=== PATIENT | female | born 1990 | race American Indian/Alaskan Native ===

== ENCOUNTER 2020-02-29 16:57 | Emergency (ER) | payer MEDICAID ==
--- NOTE | 2020-02-29 17:46 | Event Note ---
ED Screening Note ED Screening Note: lmp 9 weeks preg [place] [facility] scoliosis vomiting fever/chills cough ob seen last week rx folic acid G1 This initial assessment/diagnostic orders/clinical plan/treatment(s) is/are subject to change based on patients health status, clinical progression and re- assessment by fellow clinical providers in the ED. Further treatment and workup at subsequent clinical providers discretion. Patient/guardian urged not to elope from the ED as their condition may be serious if not clinically assessed and managed. Initial orders include: labs urine
[2020-02-29] MEDS ORDERED: ONDANSETRON 4 MG/2 ML INJ IV ONE (18:34)
[2020-02-29 18:53] LABS: Bacteria,Urine 2+ /HPF (Negative); Bilirubin,Urine NEG (Negative); Blood,Urine NEG (Negative); Color,Urine Yellow (Yellow); Mucus,Urine 2+ /HPF; Protein,Urine <15 mg/dL mg/dL (Negative)
[2020-02-29 19:18] LABS: Hemoglobin 13.6 gm/dl (10.1-14.3); Mean Corpuscular HGB Conc 34 % (30-34); Mean Corpuscular Volume 97 fl (79-97); Platelet Count 219 K/mm3 (140-440); Red Blood Count 4.12 M/mm3 (3.65-5.03); Red Cell Distribution Width 13.2 % (13.2-15.2)
[2020-02-29 19:36] LABS: Blood Urea Nitrogen 11 mg/dL (7-17); Calcium 9.3 mg/dL (8.4-10.2); Hemolysis Index 21
[2020-02-29 19:37] LABS: BUN/Creatinine Ratio 18
[2020-02-29] MEDS ORDERED: diphenhydrAMINE 50 MG/ML VIAL IV ONE (19:42)
[2020-02-29] MEDS ORDERED: FAMOTIDINE 20 MG/2 ML INJ IV ONE (19:42)
[2020-02-29] MEDS ORDERED: METOCLOPRAMIDE 10 MG/2 ML INJ IV ONE (19:42)
[2020-02-29] MEDS ORDERED: SODIUM CHLORIDE 0.9% 1000 ML 1,000 ML IV ONE (19:42)
[2020-02-29] MEDS ORDERED: cefTRIAXone/NS 1 GM/50 ML 1 GM/50 ML BAG IV ONE (20:44)
--- NOTE | 2020-02-29 22:22 | Emergency Department Report ---
ED N/V/D HPI - General Chief complaint: Nausea/Vomiting/Diarrhea Stated complaint: N/V/WEAKNESS Time Seen by Provider: 02/29/20 17:49 Source: patient Mode of arrival: Ambulatory Limitations: No Limitations - History of Present Illness Initial comments: Patient is a A0 29-year-old -[place] female who is approximately 9 weeks gestation and who presented to the ED with acute onset persistent intractable nausea and vomiting for the last 3 days with lack of appetite and generalized weakness. Patient states that he has not been able to keep anything down including fluids. Patient denies abdominal pain, vaginal bleeding, dysuria, urinary frequency and urgency, vaginal discharge, chest pain, shortness of breath, sore throat, diarrhea, fever, chills, cough or headache. MD complaint: nausea, vomiting -: Sudden, days(s) (3) Description of Vomiting: food contents, watery Associated Abdominal Pain: No Location: diffuse Radiation: none Severity: severe Pain Scale: 0 Quality: dull Consistency: intermittent Improves with: none Worsens with: eating, vomiting Context: other (First trimester ) Associated Symptoms: denies other symptoms, loss of appetite, malaise, nausea/vomiting. denies: myalgias, cough, diaphoresis, fever/chills, headaches, rash, dysuria, shortness of breath, syncope, other - Related Data Previous Rx's Medication Instructions Recorded Last Taken Type Famotidine [Pepcid] 20 mg PO BID #60 tablet 02/29/20 Unknown Rx Metoclopramide [Reglan] 10 mg PO Q8H PRN #30 tab 02/29/20 Unknown Rx cephALEXin [Keflex] 500 mg PO Q8HR #30 cap 02/29/20 Unknown Rx Allergies Allergy/AdvReac Type Severity Reaction Status Date / Time No Known Allergies Allergy Verified 02/29/20 17:44 ED Review of Systems ROS: Stated complaint: N/V/WEAKNESS Other details as noted in HPI Constitutional: denies: chills, fever Eyes: denies: eye pain, eye discharge, vision change ENT: denies: ear pain, throat pain Respiratory: denies: cough, shortness of breath, wheezing Cardiovascular: denies: chest pain, palpitations Endocrine: no symptoms reported Gastrointestinal: nausea, vomiting. denies: abdominal pain, diarrhea Genitourinary: denies: urgency, dysuria, discharge Musculoskeletal: denies: back pain, joint swelling, arthralgia Skin: denies: rash, lesions Neurological: denies: headache, weakness, paresthesias Psychiatric: denies: anxiety, depression Hematological/Lymphatic: denies: easy bleeding, easy bruising ED Past Medical Hx - Medications Home Medications: Home Medications Medication Instructions Recorded Confirmed Last Taken Type Famotidine [Pepcid] 20 mg PO BID #60 tablet 02/29/20 Unknown Rx Metoclopramide [Reglan] 10 mg PO Q8H PRN #30 tab 02/29/20 Unknown Rx cephALEXin [Keflex] 500 mg PO Q8HR #30 cap 02/29/20 Unknown Rx ED Physical Exam - General Limitations: No Limitations General appearance: alert, in no apparent distress - Head Head exam: Present: atraumatic, normocephalic, normal inspection - Eye Eye exam: Present: normal appearance, PERRL, EOMI Pupils: Present: normal accommodation - ENT ENT exam: Present: normal exam, normal orophraynx, mucous membranes moist, TM's normal bilaterally, normal external ear exam - Neck Neck exam: Present: normal inspection, full ROM - Respiratory Respiratory exam: Present: normal lung sounds bilaterally. Absent: respiratory distress, wheezes, rales, rhonchi, chest wall tenderness, accessory muscle use, prolonged expiratory, other - Cardiovascular Cardiovascular Exam: Present: regular rate, normal rhythm, normal heart sounds. Absent: systolic murmur, diastolic murmur, rubs, gallop - GI/Abdominal GI/Abdominal exam: Present: soft, normal bowel sounds. Absent: tenderness, guarding, rebound, hyperactive bowel sounds, hypoactive bowel sounds, organomegaly - Extremities Exam Extremities exam: Present: normal inspection - Back Exam Back exam: Present: normal inspection, full ROM. Absent: tenderness, CVA tenderness (R), CVA tenderness (L), muscle spasm, paraspinal tenderness, vertebral tenderness - Neurological Exam Neurological exam: Present: alert, oriented X3, CN II-XII intact, normal gait, reflexes normal - Psychiatric Psychiatric exam: Present: normal affect, normal mood - Skin Skin exam: Present: warm, dry, intact, normal color. Absent: rash ED Course Vital Signs 02/29/20 17:21 Temperature 98.4 F Pulse Rate 89 Respiratory 18 Rate Blood Pressure 113/71 O2 Sat by Pulse 98 Oximetry ED Medical Decision Making - Lab Data Result diagrams: 02/29/20 18:47 02/29/20 18:47 - Medical Decision Making This is a A0 29-year-old -[place]iss female who is approximately 9 weeks gestation and who presented to the ED with acute onset persistent intractable nausea and vomiting for the last 3 days with lack of appetite and generalized weakness. Patient states that he has not been able to keep anything down including fluids. In the ED, patient is alert and oriented x3 and is not in distress. Lab test results were reviewed and showed mild acute leukocytosis of 11,800, mild hyponatremia of 134 mmol/L, elevated lipase levels to 122, [place] [address], and urinalysis showed urinary tract infection. Rest of the lab test results are all nonactionable. The patient was treated in the ED with normal saline 1 L IV bolus x1, antiemetics, antacids and also given Rocephin 1 g IV x1 for acute UTI. On reevaluation, patient's nausea and vomiting resolved and patient felt better and passed oral fluid challenge in the ED. Patient was discharged home on antiemetics and antibiotics as well as an antacid prescriptions and was advised to follow-up with [employer] physician in 5 to 7 days for reevaluation or return to the ED immediately if symptoms get worse. - Differential Diagnosis Dehydration; Hyperemesis gravidarum; UTI; GERD; Gastroenteritis Critical care attestation.: If time is entered above; I have spent that time in minutes in the direct care of this critically ill patient, excluding procedure time. ED Disposition Clinical Impression: Severe hyperemesis gravidarum, Acute urinary tract infection Disposition: - TO HOME OR SELFCARE Is pt being admited?: No Does the pt Need Aspirin: No Condition: Stable Instructions: Hyperemesis Gravidarum (ED), Urinary Tract Infection in Women (ED) Additional Instructions: Maintain a clear liquid diet for 12 to 24 hours, take medication as needed for nausea and vomiting, drink plenty of fluids and follow-up with your [employer] physician in 3 to 5 days for reevaluation or return to the ED immediately if symptoms get worse. Prescriptions: cephALEXin [Keflex] 500 mg PO Q8HR #30 cap Famotidine [Pepcid] 20 mg PO BID #60 tablet Metoclopramide [Reglan] 10 mg PO Q8H PRN #30 tab PRN Reason: Nausea Referrals: KIARA ARIZA MD [Staff Physician] - 3-5 Days Time of Disposition: 22:25 Print Language: ETHIOPIAN
[2020-02-29 22:52] VITALS: BP 110/72
== END 2020-02-29 22:51 | disposition home or self-care (01) ==
LOC: ED 16:57
DX: O21.1 Hyperemesis gravidarum with metabolic disturbance (principal); O23.41 Unspecified infection of urinary tract in pregnancy, first trimester; Z3A.09 9 weeks gestation of pregnancy; Z79.899 Other long term (current) drug therapy
CPT/HCPCS: 36415; 80048; 81001; 83690; 84702; 85027; 87076; 87086; 87186; 96365; 96375; 99283; J0696; J1200; J2765; J7030

== ENCOUNTER 2020-05-23 22:19 | Outpatient (CLI) | payer MEDICAID ==
[2020-05-23 23:31] VITALS: BP 106/60
[2020-05-23] MEDS ORDERED: LACTATED RINGERS 1,000 ML IV ONE (23:32)
[2020-05-23 23:52] LABS: Bilirubin,Urine NEG (Negative); Blood,Urine NEG (Negative); Color,Urine Yellow (Yellow); Mucus,Urine FEW /HPF; Protein,Urine <15 mg/dL mg/dL (Negative); Urobilinogen,Urine < 2.0 mg/dL (<2.0)
== END 2020-05-24 00:35 | disposition home or self-care (01) ==
LOC: TRG 22:19 → APU 05-24 00:26 → TRG 05-24 00:35
PROVIDERS: ATTEND Obstetrics & Gynecology
DX: Z34.82 Encounter for supervision of other normal pregnancy, second trimester (principal); Z3A.21 21 weeks gestation of pregnancy
CPT/HCPCS: 59025; 81001